=== PATIENT | male | born 1990 | race Two or more races ===

== ENCOUNTER → 2020-04-23 09:47 | Outpatient (BNVA) | payer OTHER, SELFPAY | PROVIDERS: Visit Provider Internal Medicine | DX: S46.001A Unspecified injury of muscle(s) and tendon(s) of the rotator cuff of right shoulder, initial encounter (principal); X50.0XXA Overexertion from strenuous movement or load, initial encounter | CPT/HCPCS: 99203 ==

== ENCOUNTER → 2020-04-25 14:22 | Outpatient (BNVA) | payer OTHER, SELFPAY | PROVIDERS: Visit Provider Internal Medicine | DX: S46.001A Unspecified injury of muscle(s) and tendon(s) of the rotator cuff of right shoulder, initial encounter (principal); X58.XXXA Exposure to other specified factors, initial encounter | CPT/HCPCS: 99213 ==

== ENCOUNTER → 2020-04-29 10:41 | Outpatient (BNVA) | payer OTHER, SELFPAY | PROVIDERS: Visit Provider Internal Medicine | DX: S46.001D Unspecified injury of muscle(s) and tendon(s) of the rotator cuff of right shoulder, subsequent encounter (principal); X58.XXXD Exposure to other specified factors, subsequent encounter | CPT/HCPCS: 99213 ==

== ENCOUNTER → 2020-05-06 12:56 | Outpatient (BNVA) | payer OTHER, SELFPAY | PROVIDERS: Visit Provider Internal Medicine | DX: S46.001D Unspecified injury of muscle(s) and tendon(s) of the rotator cuff of right shoulder, subsequent encounter (principal); X58.XXXD Exposure to other specified factors, subsequent encounter | CPT/HCPCS: 99213 ==

== ENCOUNTER → 2020-05-15 09:51 | Outpatient (BNVA) | payer OTHER, SELFPAY | PROVIDERS: Visit Provider Internal Medicine | DX: M25.511 Pain in right shoulder (principal) | CPT/HCPCS: 73030; 99214 ==

== ENCOUNTER → 2020-05-27 12:47 | Outpatient (BNVA) | payer OTHER, SELFPAY | PROVIDERS: Visit Provider Internal Medicine | DX: S46.911D Strain of unspecified muscle, fascia and tendon at shoulder and upper arm level, right arm, subsequent encounter (principal); X58.XXXD Exposure to other specified factors, subsequent encounter | CPT/HCPCS: 99213 ==

== ENCOUNTER 2020-06-04 14:00 | Outpatient (RCR) | payer OTHER, SELFPAY ==
--- NOTE | 2020-05-02 16:20 | MHC.PT.EP ---
[facility] [place] [facility] [place] [facility] [place] Office [address] Emma Pan [address] [phone] F: [phone] F: [phone] F: [phone] F: [phone] Physical Therapy Plan of Care Date of Evaluation: 05/02/20 Date of Surgery: Diagnosis: RTC injury right shoulder Assessment: This is a 30 y/o male presenting to skilled PT s/p work related injury which resulted in posterior right shoulder pain. 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 Related functional limitations inlcude: inability to work, difficulty donning/doffing clothes, lifting, reaching for something in the fridge or on a high shelf, rolling over in bed, and laying on the right shoulder. Pt will benefit from skilled PT services 2x/week for 5 weeks in order to reduce impairments, improve limitations, and implement a comprehensive HEP. His goal is to return to work and relieve pain. Frequency and Duration: The patient will be seen 2x/week for 5 weeks, minimum of 38 minutes. Short Term Goals: -In 2 weeks, Pt to report less than 7/10 pain with AROM of the right shoulder. -In 3 weeks, Pt to restore PROM of the right shoulder to WNL in all directions. Nursing Home Goals: -In 4 weeks, Pt to demonstrate the ability to reach for and retrieve a weighted object off a shelf above head level w/o pain. -In 5 weeks, Pt to improve SPADI by at least 13 points. Treatment Plan: Modalities to reduce pain, spasms and effusion. Manual therapy to restore motion and function. Therapeutic exercise to improve strength and flexibility. Neuromuscular re-education for posture and balance. Therapeutic activities to return to functional activities of daily living. Please sign and return to therapist. Thank you for your referral.
--- NOTE | 2020-06-04 16:22 | MHC.PT.RE ---
[facility] [place] [facility] [place] Office [place] Office [address] Emma Pan [address] [phone] F: [phone] F: [phone] F: [phone] F: [phone] Physical Therapy Re-evaluation Diagnosis: RTC injury right shoulder Date of Surgery: NA Date of Evaluation: 05/02/20 Treatments to Date: 8 Cancellations to Date: 3 No Shows to Date: 1 Subjective: He is feeling good today Pain Score: 0-3 Pain Location: R posterolateral neck mm Objective Measures: Shoulder AROM: WNL L shoulder strength: flexion 5/5, abd 4+/5, ER 4/5, mid traps/lats 4-/5, rhomboids 4/5 Assessment: Pt tolerated all ther-ex with no increase in pain. He reports feeling 75% better overall since starting PT, however he still has pain with lifting and reaching overhead. He is working light duty. His shoulder AROM has improved to WNL and strength is also improving (see objective measures). He would benefit from 2x/week for 2 additional weeks to progress strength and initiate RTW functional training. Short Term Goals: -In 2 weeks, Pt to report less than 7/10 pain with AROM of the right shoulder. - MET -In 3 weeks, Pt to restore PROM of the right shoulder to WNL in all directions. 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 -In 5 weeks, Pt to improve SPADI by at least 13 points. Frequency and Duration: The patient will be seen 2x/week for 5 weeks, minimum of 38 minutes. Treatment Plan: Therapeutic Exercise Dynamic Therapeutic Activities Neuromuscular Re-ed Manual Therapies Joint Mobilization Home Exercise Program Patient Education Hot or Cold Pack Reviewed/ Agreed with Student Documentation: N/A Therapist: Electronically signed by: Karen Costello PT Please sign and return to therapist. Thank you for your referral.
--- NOTE | 2020-06-17 13:40 | MHC.PT.DC ---
[facility] [place] Office [place] Office [place] Office [address] Emma Pan [address] [phone] F: [phone] F: [phone] F: [phone] F: [phone] Physical Therapy Discharge Report Diagnosis: RTC injury right shoulder Date of Surgery: NA Date of Evaluation: 05/02/20 Date of Discharge: 06/17/20 Treatments to Date: 8 Cancellations to Date: 3 No Shows to Date: 2 Discharge Status: Patient Elected to Stop Visit Non-compliance Discharge Summary: Pt no showed for 2 consecutive visits. He was being seen in PT for right sided neck/scapular pain. During his last session, he reported feeling 75% better overall since starting PT, however he still had pain with lifting and reaching overhead. He was working light duty. His shoulder AROM had improved to WNL and strength was slowly improving. Our plan for PT was to maintain centralized neck pain without peripheralisation and progress functional training/RTW. Electronically signed by: Tori Marmolejo PT, DPT Please sign and return to therapist. Thank you for your referral.
== END 2020-06-17 13:45 | disposition other institution (70) ==
LOC: HO.PT 14:00
PROVIDERS: Visit Provider Internal Medicine
DX: S46.001D Unspecified injury of muscle(s) and tendon(s) of the rotator cuff of right shoulder, subsequent encounter (principal)
CPT/HCPCS: 97110; 97140; 97161

== ENCOUNTER → 2020-06-10 13:31 | Outpatient (BNVA) | payer OTHER, SELFPAY | PROVIDERS: Visit Provider Internal Medicine | DX: S43.421D Sprain of right rotator cuff capsule, subsequent encounter (principal); X58.XXXD Exposure to other specified factors, subsequent encounter | CPT/HCPCS: 99213 ==

== ENCOUNTER → 2020-07-02 08:41 | Outpatient (BNVA) | payer OTHER, SELFPAY | PROVIDERS: Visit Provider Internal Medicine | DX: S46.001D Unspecified injury of muscle(s) and tendon(s) of the rotator cuff of right shoulder, subsequent encounter (principal); X58.XXXD Exposure to other specified factors, subsequent encounter | CPT/HCPCS: 99213 ==